=== PATIENT | male | born 2000 | race Caucasian/White ===

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

== ENCOUNTER 2020-06-25 23:35 | Emergency (ER) | payer OTHER ==
[~2020-06-25] VITALS: Ht 185.4 cm; Wt 91.6 kg
[~2020-06-25 23:35] MED LIST: PROM25 PO; SUCR1 PO
== END 2020-06-26 00:02 | disposition home or self-care (01) ==
LOC: ER 23:35
DX: F10.129 Alcohol abuse with intoxication, unspecified (principal); F17.210 Nicotine dependence, cigarettes, uncomplicated; Z91.018 Allergy to other foods
CPT/HCPCS: 99284

== ENCOUNTER 2021-06-25 17:09 | Emergency (ER) | payer OTHER ==
[~2021-06-25] VITALS: Ht 182.9 cm; Wt 68.0 kg
== END 2021-06-25 18:54 | disposition home or self-care (01) ==
LOC: ER 17:09
DX: U07.1 COVID-19 (principal); F17.210 Nicotine dependence, cigarettes, uncomplicated
CPT/HCPCS: 99283

== ENCOUNTER → 2023-11-07 | Outpatient (CLI) | payer OTHER ==
[2023-11-07 16:30] LABS: BASOPHILS ABSOLUTE AUTO 0.09 K/mm3 (0.00-0.23); BASOPHILS PERCENT AUTO 1 % (0-2); EOSINOPHILS ABSOLUTE AUTO 0.17 K/mm3 (0.00-0.68); EOSINOPHILS PERCENT AUTO 2 % (0-6); Hematocrit 45.8 % (37.0-53.0); Hemoglobin 15.3 g/dL (13.5-17.5); IMMATURE GRAN ABSOLUTE AUTO 0.03 K/mm3 (0.00-0.10); IMMATURE GRAN PERCENT AUTO 0 % (0-1); LYMPHOCYTES PERCENT AUTO 21 % (21-46); MONOCYTES ABSOLUTE AUTO 0.96 K/mm3 (0.16-1.47); MONOCYTES PERCENT AUTO 11 % (4-13); Mean Corpuscular HGB Conc 33.4 g/dL (31.5-36.5); Mean Corpuscular Volume 87 fL (80-100); Mean Platelet Volume 9.7 fL (9.1-12.4); NEUTROPHILS ABSOLUTE AUTO 5.81 K/mm3 (1.96-9.15); NEUTROPHILS PERCENT AUTO 65 % (41-73); Platelet Count 284 K/mm3 (150-400); RDW Coefficient Variation 11.6 % (11.7-14.2); RDW Standard Deviation 36.4 fL (35.1-46.3); Red Blood Cell Count 5.27 M/mm3 (4.30-5.90); White Blood Cell Count 8.96 K/mm3 (4.00-11.30)
[2023-11-07 16:38] LABS: Albumin, Blood 4.1 g/dL (3.4-5.0); Albumin/Globulin Ratio 1.2 (0.8-1.8); Bilirubin, Total 0.3 mg/dL (0.1-1.0); Bun/Creatinine Ratio 14.8 (12.0-20.0); Calcium, Blood 9.4 mg/dL (8.5-10.1); Creatinine, Blood 0.88 mg/dL (0.60-1.20); Globulin, Blood 3.5 g/dL (2.2-4.0); Potassium, Blood 3.7 mmol/L (3.5-5.5); Total Protein, Blood 7.6 g/dL (6.4-8.2)
== END | disposition home or self-care (01) ==
LOC: LAB 16:22 → LAB SHORT 16:22
PROVIDERS: Emergency Medicine
DX: R10.32 Left lower quadrant pain (principal)
CPT/HCPCS: 80053; 83690; 85025

== ENCOUNTER → 2023-12-05 | Outpatient (CLI) | payer OTHER ==
[2023-12-05 13:14] LABS: Protein, Urine Quantitative 15.5 mg/dL (0.0-11.9)
== END | disposition home or self-care (01) ==
LOC: LAB 09:39 → LAB SHORT 09:39
PROVIDERS: Physician Assistant
DX: R53.83 Other fatigue (principal)
CPT/HCPCS: 81050; 84156

== ENCOUNTER 2024-08-30 14:12 | Emergency (ER) | payer OTHER ==
[~2024-08-30] VITALS: Ht 182.9 cm; Wt 81.7 kg
[2024-08-30 14:26] VITALS: BP 140/89
[2024-08-30] MEDS ORDERED: ZIPR40 PO ×2 (14:28→14:30)
== END 2024-08-30 14:28 | disposition home or self-care (01) ==
LOC: ER 14:12
DX: Z76.0 Encounter for issue of repeat prescription (principal); F31.9 Bipolar disorder, unspecified; F17.210 Nicotine dependence, cigarettes, uncomplicated
CPT/HCPCS: 99281

== ENCOUNTER 2024-10-12 05:22 | Emergency (ER) | payer OTHER ==
[~2024-10-12] VITALS: Ht 182.9 cm; Wt 111.1 kg
[~2024-10-12 05:22] MED LIST changes: +ZIPR40 PO
[2024-10-12 05:47] VITALS: BP 142/98
[2024-10-12] MEDS ORDERED: Metoclopramide HCl 5MG / ML 2ML Vial IV ONE (08:20)
== END 2024-10-12 09:05 | disposition home or self-care (01) ==
LOC: ER 05:22
DX: F51.8 Other sleep disorders not due to a substance or known physiological condition (principal); F20.9 Schizophrenia, unspecified; R42 Dizziness and giddiness; F17.210 Nicotine dependence, cigarettes, uncomplicated; Z79.899 Other long term (current) drug therapy
CPT/HCPCS: 93005; 93010; 96374; 99284-25; J2765

== ENCOUNTER 2024-10-25 16:08 | Emergency (ER) | payer OTHER ==
[~2024-10-25] VITALS: Ht 185.4 cm; Wt 113.4 kg
[2024-10-25 16:21] VITALS: BP 142/94
[2024-10-25] MEDS ORDERED: Ketorolac Tromethamine 30mg Vial IM ONE (18:25)
[2024-10-25] MEDS ORDERED: Cyclobenzaprine HCl 10 MG Tab PO ONE (18:25)
[2024-10-25] MEDS ORDERED: CYCLOBENZAPRINE5 MG PO (18:36)
[2024-10-25] MEDS ORDERED: IBUP600 PO (18:36)
[2024-10-25] MEDS ORDERED: FAMO20 PO (18:36)
== END 2024-10-25 18:51 | disposition home or self-care (01) ==
LOC: ER 16:08
DX: M54.50 Low back pain, unspecified (principal); F17.210 Nicotine dependence, cigarettes, uncomplicated
CPT/HCPCS: 96372; 99283-25; A9270; J1885

== ENCOUNTER 2024-11-30 08:13 | Day surgery (SDC) | payer OTHER ==
[~2024-11-30] VITALS: Ht 185.4 cm; Wt 111.8 kg
[~2024-11-30 08:13] MED LIST changes: +CYCLOBENZAPRINE5 MG PO; +FAMO20 PO; +IBUP600 PO; +Lactated Ringer's 1,000 ML IV ONE; +propofoL 50 ML IV ONE
[2024-11-30] MEDS ORDERED: Vyvanse20 MG (08:46)
[2024-11-30] MEDS ORDERED: Lactated Ringer's 1,000 ML IV ONE (09:57)
[2024-11-30 10:48] VITALS: BP 109/76
== END 2024-11-30 10:47 | disposition home or self-care (01) ==
LOC: ORSCSDS 08:13
PROVIDERS: Specialist
PROC: 0DB58ZX Excision of Esophagus, Via Natural or Artificial Opening Endoscopic, Diagnostic (ICD-10-PCS; principal; 2024-11-30 09:45)
PROC: 0DB98ZX Excision of Duodenum, Via Natural or Artificial Opening Endoscopic, Diagnostic (ICD-10-PCS; principal; 2024-11-30 09:45)
PROC: 0DB68ZX Excision of Stomach, Via Natural or Artificial Opening Endoscopic, Diagnostic (ICD-10-PCS; principal; 2024-11-30 09:45)
PROC: 0DJD8ZZ Inspection of Lower Intestinal Tract, Via Natural or Artificial Opening Endoscopic (ICD-10-PCS; principal; 2024-11-30 09:45)
DX: R13.10 Dysphagia, unspecified (principal); R19.4 Change in bowel habit; R10.84 Generalized abdominal pain; R11.0 Nausea; K64.8 Other hemorrhoids; K57.30 Diverticulosis of large intestine without perforation or abscess without bleeding; K20.90 Esophagitis, unspecified without bleeding; Z87.19 Personal history of other diseases of the digestive system; F90.9 Attention-deficit hyperactivity disorder, unspecified type; F20.9 Schizophrenia, unspecified; F31.9 Bipolar disorder, unspecified; Z87.891 Personal history of nicotine dependence; Z79.899 Other long term (current) drug therapy
CPT/HCPCS: 88305; 88342; J2704; J7120

== ENCOUNTER 2024-12-29 12:11 | Emergency (ER) | payer OTHER ==
[~2024-12-29] VITALS: Ht 185.4 cm; Wt 112.5 kg
[~2024-12-29 12:11] MED LIST changes: -Lactated Ringer's 1,000 ML IV ONE; +Vyvanse20 MG; -propofoL 50 ML IV ONE
[2024-12-29 12:40] VITALS: BP 148/98
[2024-12-29 13:25] LABS: BASOPHILS ABSOLUTE AUTO 0.09 K/mm3 (0.00-0.23); BASOPHILS PERCENT AUTO 1 % (0-2); EOSINOPHILS ABSOLUTE AUTO 0.21 K/mm3 (0.00-0.68); EOSINOPHILS PERCENT AUTO 3 % (0-6); Hemoglobin 15.1 g/dL (13.5-17.5); IMMATURE GRAN ABSOLUTE AUTO 0.02 K/mm3 (0.00-0.10); IMMATURE GRAN PERCENT AUTO 0 % (0-1); LYMPHOCYTES PERCENT AUTO 24 % (21-46); MONOCYTES PERCENT AUTO 7 % (4-13); Mean Corpuscular HGB 29.4 pg (26.0-34.0); Mean Corpuscular HGB Conc 34.3 g/dL (31.5-36.5); Mean Corpuscular Volume 86 fL (80-100); Mean Platelet Volume 10.3 fL (9.1-12.4); NEUTROPHILS ABSOLUTE AUTO 4.36 K/mm3 (1.96-9.15); NEUTROPHILS PERCENT AUTO 64 % (41-73); Platelet Count 270 K/mm3 (150-400); RDW Coefficient Variation 11.7 % (11.7-14.2); RDW Standard Deviation 36.6 fL (35.1-46.3); Red Blood Cell Count 5.13 M/mm3 (4.30-5.90); White Blood Cell Count 6.78 K/mm3 (4.00-11.30)
[2024-12-29 13:54] LABS: Albumin/Globulin Ratio 1.2 (0.8-1.8); Bilirubin, Total 0.4 mg/dL (0.1-1.0); Bun/Creatinine Ratio 13.3 (12.0-20.0); Calcium, Blood 8.8 mg/dL (8.5-10.1); Creatinine, Blood 0.75 mg/dL (0.60-1.20); Globulin, Blood 3.4 g/dL (2.2-4.0); Potassium, Blood 3.7 mmol/L (3.5-5.5); Total Protein, Blood 7.4 g/dL (6.4-8.2)
[2024-12-29] MEDS ORDERED: Famotidine 10 MG/ML 2ML Vial IV ONE (15:40)
== END 2024-12-29 15:54 | disposition home or self-care (01) ==
LOC: ER 12:11
PROVIDERS: Physician Assistant
DX: K21.9 Gastro-esophageal reflux disease without esophagitis (principal); F17.210 Nicotine dependence, cigarettes, uncomplicated; Z88.0 Allergy status to penicillin; Z79.899 Other long term (current) drug therapy
CPT/HCPCS: 71046; 80053; 83690; 85025; 93005; 93010; 96374; 99284-25

== ENCOUNTER 2025-08-28 22:15 | Emergency (ER) | payer OTHER ==
[~2025-08-28] VITALS: Ht 185.4 cm; Wt 126.1 kg
[2025-08-28] MEDS ORDERED: Ketorolac Tromethamine 30mg Vial IM ONE (22:35)
[2025-08-28 23:35] VITALS: BP 120/89
== END 2025-08-28 23:36 | disposition home or self-care (01) ==
LOC: ER 22:15
DX: M75.42 Impingement syndrome of left shoulder (principal); F41.9 Anxiety disorder, unspecified; Z88.0 Allergy status to penicillin; Z79.899 Other long term (current) drug therapy
CPT/HCPCS: 96372; 99282-25; A9270; J1885